=== PATIENT | male | born 1985 | race Caucasian/White ===

== ENCOUNTER 2019-04-29 13:29 | Emergency (ER) | payer OTHER ==
[~2019-04-29] VITALS: Ht 177.8 cm; Wt 70.3 kg
[~2019-04-29 13:29] MED LIST: AZIT250 PO; CYCL10 PO; GUAI600ER PO; HYDACE5 PO; HYDACE5325 PO; METPRE4DP PO; NAPR500 PO; NAPR550 PO; OXYACE5T PO; PROM25 PO; RANI150 PO; RXNAPNA550 PO; SULF10OPSA OS; Ultram50 MG PO
[2019-04-29] MEDS ORDERED: Prednisone20 MG PO (15:33)
[2019-04-29] MEDS ORDERED: Pepcid20 MG PO (15:33)
== END 2019-04-29 15:36 | disposition home or self-care (01) ==
LOC: ER 13:29
DX: T63.441A Toxic effect of venom of bees, accidental (unintentional), initial encounter (principal); F17.210 Nicotine dependence, cigarettes, uncomplicated
CPT/HCPCS: 96374; 96375; 99283-25; J1100; J1200; J2765

== ENCOUNTER 2019-05-22 21:48 | Emergency (ER) | payer OTHER ==
[~2019-05-22] VITALS: Ht 177.8 cm; Wt 70.3 kg
[~2019-05-22 21:48] MED LIST changes: +Pepcid20 MG PO; +Prednisone20 MG PO
[2019-05-22 23:21] LABS: BASOPHILS ABSOLUTE AUTO 0.04 K/mm3 (0.00-0.23); BASOPHILS PERCENT AUTO 0 % (0-2); EOSINOPHILS PERCENT AUTO 1 % (0-6); Hematocrit 48.2 % (37.0-53.0); Hemoglobin 16.5 g/dL (13.5-17.5); IMMATURE GRAN ABSOLUTE AUTO 0.02 K/mm3 (0.00-0.10); IMMATURE GRAN PERCENT AUTO 0 % (0-1); LYMPHOCYTES PERCENT AUTO 20 % (21-46); MONOCYTES PERCENT AUTO 9 % (4-13); Mean Corpuscular HGB 29.9 pg (26.0-34.0); Mean Corpuscular HGB Conc 34.2 g/dL (31.5-36.5); Mean Corpuscular Volume 87 fL (80-100); Mean Platelet Volume 8.3 fL (9.1-12.4); NEUTROPHILS ABSOLUTE AUTO 7.23 K/mm3 (1.96-9.15); NEUTROPHILS PERCENT AUTO 70 % (41-73); Platelet Count 328 K/mm3 (150-400); RDW Coefficient Variation 11.9 % (11.7-14.2); RDW Standard Deviation 38.6 fL (35.1-46.3); Red Blood Cell Count 5.52 M/mm3 (4.30-5.90); White Blood Cell Count 10.39 K/mm3 (4.00-11.30)
[2019-05-22 23:39] LABS: Alanine Aminotransfer (ALT/SGP 26 U/L (12-78); Albumin, Blood 4.4 g/dL (3.4-5.0); Albumin/Globulin Ratio 1.2 (0.8-1.8); Alk Phos 86 U/L (50-136); Anion Gap 5 mmol/L (6-16); Aspartate Aminotrans (AST/SGOT 17 U/L (12-37); Bilirubin, Total 0.8 mg/dL (0.1-1.0); Blood Urea Nitrogen 19 mg/dL (8-24); CO2, Blood 29 mmol/L (21-32); Calcium, Blood 8.9 mg/dL (8.5-10.1); Chloride, Blood 107 mmol/L (98-108); Ethanol (Alcohol), Blood, Med <3 mg/dL; Globulin, Blood 3.7 g/dL (2.2-4.0); Glomerular Filtration Rate >60 (60-); Glucose, Blood 93 mg/dL (70-99); Potassium, Blood 3.6 mmol/L (3.5-5.5); Salicylate 2.8 mg/dL (2.8-20.0); Sodium, Blood 141 mmol/L (136-145); Total Protein, Blood 8.1 g/dL (6.4-8.2)
[2019-05-22 23:47] LABS: Acetaminophen, Random <2.0 ug/mL (10.0-30.0)
== END 2019-05-23 02:45 | disposition home or self-care (01) ==
LOC: ER 21:48
PROVIDERS: Emergency Medicine
DX: F32.9 Major depressive disorder, single episode, unspecified (principal); F17.210 Nicotine dependence, cigarettes, uncomplicated
CPT/HCPCS: 36415; 80053; 85025; 99284; G0480; Q3014

== ENCOUNTER 2020-12-02 17:10 | Emergency (ER) | payer OTHER ==
[~2020-12-02] VITALS: Ht 180.3 cm; Wt 70.3 kg
[2020-12-02 17:47] LABS: BASOPHILS ABSOLUTE AUTO 0.06 K/mm3 (0.00-0.23); BASOPHILS PERCENT AUTO 0 % (0-2); EOSINOPHILS ABSOLUTE AUTO 0.45 K/mm3 (0.00-0.68); EOSINOPHILS PERCENT AUTO 3 % (0-6); Hematocrit 44.8 % (37.0-53.0); Hemoglobin 14.6 g/dL (13.5-17.5); IMMATURE GRAN ABSOLUTE AUTO 0.05 K/mm3 (0.00-0.10); IMMATURE GRAN PERCENT AUTO 0 % (0-1); LYMPHOCYTES ABSOLUTE AUTO 1.67 K/mm3 (0.84-5.20); LYMPHOCYTES PERCENT AUTO 10 % (21-46); MONOCYTES ABSOLUTE AUTO 2.03 K/mm3 (0.16-1.47); MONOCYTES PERCENT AUTO 12 % (4-13); Mean Corpuscular HGB 28.5 pg (26.0-34.0); Mean Corpuscular HGB Conc 32.6 g/dL (31.5-36.5); Mean Corpuscular Volume 88 fL (80-100); Mean Platelet Volume 8.5 fL (9.1-12.4); NEUTROPHILS ABSOLUTE AUTO 12.57 K/mm3 (1.96-9.15); NEUTROPHILS PERCENT AUTO 75 % (41-73); Platelet Count 289 K/mm3 (150-400); RDW Coefficient Variation 11.4 % (11.7-14.2); RDW Standard Deviation 37.1 fL (35.1-46.3); Red Blood Cell Count 5.12 M/mm3 (4.30-5.90); White Blood Cell Count 16.83 K/mm3 (4.00-11.30)
[2020-12-02 18:08] LABS: Alanine Aminotransfer (ALT/SGP 35 U/L (12-78); Albumin, Blood 3.1 g/dL (3.4-5.0); Albumin/Globulin Ratio 0.7 (0.8-1.8); Alk Phos 91 U/L (50-136); Anion Gap 5 mmol/L (6-16); Aspartate Aminotrans (AST/SGOT 17 U/L (12-37); Bilirubin, Total 0.2 mg/dL (0.1-1.0); Blood Urea Nitrogen 16 mg/dL (8-24); Bun/Creatinine Ratio 21.7 (12.0-20.0); CO2, Blood 24 mmol/L (21-32); Calcium, Blood 8.7 mg/dL (8.5-10.1); Chloride, Blood 109 mmol/L (98-108); Creatinine, Blood 0.74 mg/dL (0.60-1.20); Globulin, Blood 4.2 g/dL (2.2-4.0); Glomerular Filtration Rate >60 (60-); Glucose, Blood 108 mg/dL (70-99); Sodium, Blood 138 mmol/L (136-145); Total Protein, Blood 7.3 g/dL (6.4-8.2)
[2020-12-02] MEDS ORDERED: Bactrim Ds Tab1 EACH PO (20:28)
[2020-12-02] MEDS ORDERED: CEPH500 PO (20:28)
== END 2020-12-02 21:32 | disposition home or self-care (01) ==
LOC: ER 17:10
PROVIDERS: Physician Assistant
DX: L03.116 Cellulitis of left lower limb (principal); L02.416 Cutaneous abscess of left lower limb; F17.210 Nicotine dependence, cigarettes, uncomplicated
CPT/HCPCS: 10060; 36415; 73590; 80053; 83605; 85025; 87040; 96361-59; 96374-59; 96375-59; 99283-25; A9270; J1885; J3010; J7030; J7120

== ENCOUNTER 2021-06-27 07:38 | Inpatient (IN) | payer OTHER ==
[~2021-06-27] VITALS: Ht 177.8 cm; Wt 77.5 kg
[~2021-06-27 07:38] MED LIST changes: +Bactrim Ds Tab1 EACH PO; +CEPH500 PO
[2021-06-27 07:56] LABS: BASOPHILS ABSOLUTE AUTO 0.07 K/mm3 (0.00-0.23); BASOPHILS PERCENT AUTO 0 % (0-2); EOSINOPHILS ABSOLUTE AUTO 0.09 K/mm3 (0.00-0.68); EOSINOPHILS PERCENT AUTO 0 % (0-6); Hematocrit 45.9 % (37.0-53.0); Hemoglobin 15.8 g/dL (13.5-17.5); IMMATURE GRAN ABSOLUTE AUTO 0.19 K/mm3 (0.00-0.10); IMMATURE GRAN PERCENT AUTO 1 % (0-1); LYMPHOCYTES ABSOLUTE AUTO 1.56 K/mm3 (0.84-5.20); LYMPHOCYTES PERCENT AUTO 6 % (21-46); MONOCYTES ABSOLUTE AUTO 2.03 K/mm3 (0.16-1.47); MONOCYTES PERCENT AUTO 8 % (4-13); Mean Corpuscular HGB 29.5 pg (26.0-34.0); Mean Corpuscular HGB Conc 34.4 g/dL (31.5-36.5); Mean Corpuscular Volume 86 fL (80-100); Mean Platelet Volume 8.9 fL (9.1-12.4); NEUTROPHILS ABSOLUTE AUTO 22.18 K/mm3 (1.96-9.15); NEUTROPHILS PERCENT AUTO 85 % (41-73); Platelet Count 311 K/mm3 (150-400); RDW Coefficient Variation 11.9 % (11.7-14.2); RDW Standard Deviation 37.3 fL (35.1-46.3); Red Blood Cell Count 5.36 M/mm3 (4.30-5.90); White Blood Cell Count 26.12 K/mm3 (4.00-11.30)
[2021-06-27 08:16] LABS: Alanine Aminotransfer (ALT/SGP 65 U/L (12-78); Albumin, Blood 3.7 g/dL (3.4-5.0); Alk Phos 79 U/L (50-136); Anion Gap 4 mmol/L (6-16); Aspartate Aminotrans (AST/SGOT 74 U/L (12-37); Bilirubin, Total 0.4 mg/dL (0.1-1.0); Blood Urea Nitrogen 24 mg/dL (8-24); CO2, Blood 29 mmol/L (21-32); Chloride, Blood 105 mmol/L (98-108); Creatinine, Blood 0.92 mg/dL (0.60-1.20); Ethanol (Alcohol), Blood, Med <3 mg/dL; Globulin, Blood 3.6 g/dL (2.2-4.0); Glomerular Filtration Rate >60 (60-); Glucose, Blood 98 mg/dL (70-99); Potassium, Blood 3.9 mmol/L (3.5-5.5); Sodium, Blood 138 mmol/L (136-145); Total Protein, Blood 7.3 g/dL (6.4-8.2)
[2021-06-27 09:05] LABS: International Normalized Ratio 1.02
[2021-06-27 10:51] LABS: SARS-Cov-2 (COVID-19) PCR, MMC NEGATIVE (NEGATIVE)
--- NOTE | 2021-06-27 11:25 | NUR ---
PT ARRIVED TO UNIT FROM ER AT APROX 1110, TRANSFERED TO BED FROM [facility] USING SLIDER SHEET. SPLINT IN PLACE TO RLE, OPEN WOUND TO R THIGH OOZING BLOOD. LOWER LIP BLOODY, APPEARS TO HAVE SOME TEETH BROKEN/MISSING. A/O X'S 3. PT AWAKES WITH VERBAL STIMULI BUT FALLS BACK ASLEEP QUICKLY. NEURO CHECK WNL.PT NPO AT THIS TIME.
--- NOTE | 2021-06-27 13:04 | NUR ---
BOX ATTACHER IN ROOM TO SEE PT.
--- NOTE | 2021-06-27 16:29 | NUR ---
INTO [facility] QADMISSION TO UNIT STARTED. PATIENT LETHARGIC HAD JUST RECIEVED PAIN RX ON FLOOR TO MANAGE PAIN. ABLE TO WAKE TO ANSWER QUESTIONS. BROUGHT TO [facility] ON BED.
--- NOTE | 2021-06-27 16:30 | NUR ---
PT TO OR AT APROX 3665
[2021-06-28 05:30] LABS: Alanine Aminotransfer (ALT/SGP 50 U/L (12-78); Albumin, Blood 2.9 g/dL (3.4-5.0); Albumin/Globulin Ratio 0.9 (0.8-1.8); Alk Phos 64 U/L (50-136); Anion Gap 5 mmol/L (6-16); Aspartate Aminotrans (AST/SGOT 50 U/L (12-37); Bilirubin, Total 0.5 mg/dL (0.1-1.0); Blood Urea Nitrogen 25 mg/dL (8-24); Bun/Creatinine Ratio 31.1 (12.0-20.0); CO2, Blood 27 mmol/L (21-32); Calcium, Blood 7.9 mg/dL (8.5-10.1); Chloride, Blood 104 mmol/L (98-108); Creatinine, Blood 0.81 mg/dL (0.60-1.20); Globulin, Blood 3.2 g/dL (2.2-4.0); Glomerular Filtration Rate >60 (60-); Glucose, Blood 122 mg/dL (70-99); Potassium, Blood 4.2 mmol/L (3.5-5.5); Sodium, Blood 136 mmol/L (136-145); Total Protein, Blood 6.1 g/dL (6.4-8.2)
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
[2021-06-28 18:15] LABS: U Amphetamine Screen DETECTED; U Barbituate Screen Not Detected; U Benzodiazapine Screen Not Detected; U Buprenorphine Screen Not Detected; U Cannabinoids Screen Not Detected; U Cocaine Screen Not Detected; U Methadone Screen Not Detected; U Methamphetamine Screen DETECTED; U Opiates Screen DETECTED; U Oxycodone Screen Not Detected; U Phencyclidine Screen Not Detected; U Propoxyphene Screen Not Detected
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
[2021-06-28] MEDS ORDERED: ELIQUIS5 M2 PO (22:16)
[2021-06-28] MEDS ORDERED: FINA5 PO (22:17)
[2021-06-28] MEDS ORDERED: LOVA40 PO (22:17)
[2021-06-28] MEDS ORDERED: METO50ER PO (22:18)
--- NOTE | 2021-06-29 04:39 | NUR ---
SHIFT SUMMARY NO ACUTE CHANGES THIS SHIFT. PT RECEIVING 2 NORCO + 1MG IV DILAUDID FOR BREAKTHROUGH PAIN. PT REPORTS MOUTH/CHIN AREA IS THE MOST PAINFUL. USING URINAL TO VOID. DRESSINGS TO R LEG REMAIN CDI. USES CALL LIGHT APPROPRIATELY.
--- NOTE | 2021-06-29 16:29 | NUR ---
SUMMARY: PT IS POD2 GAMMA NAILING OF R HIP. PT IS A/O, VSS. PT REPORTING PAIN AT MOUTH/JAW MORE THAN AT HIP. NARCO SWITCHED TO PERCOCET TO MANAGE PAIN, APPEARS TO BE DOING WELL. PT RESTING AT THIS TIME. PT WORKED WITH THERAPY [employer]FRANNIE. NO ACUTE SAFETY CONCERNS. WILL CTM AND REPORT TO NOC ALVARO.
--- NOTE | 2021-06-30 04:55 | NUR ---
POD 3 S/P R HIP NAILING. PT VSS T/O NIGHT. DRESSING CDI. PAIN MGD W/2 PERCOCET ADN TORADOL W/REP RELIEF. PT SWALLOWING LIQUIDS AND FL PO, DENIES DIFFICULTY SWALLOWING, DOES REP GENERALIZED MOUTH/JAW PAIN. PLAN TO CONT TO MOBILIZE PT CHAN.
--- NOTE | 2021-06-30 12:38 | NUR ---
SPOKE WITH PT'S MOTHER, MARU AND UPDATE OF PT STATUS GIVEN.
[2021-06-30] MEDS ORDERED: Aspirin325 MG PO (14:26)
[2021-06-30] MEDS ORDERED: Percocet 5-3251 EACH PO (14:27)
--- NOTE | 2021-06-30 16:20 | NUR ---
MESSAGE LEFT WITH MUSIC WRITER TO SCHEDULE OUTPUT PHYSCIAL THERAPY TOMORROW FOR PT PER ORDER.
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
== END 2021-06-30 16:15 | disposition home or self-care (01) | DRG 956 ==
LOC: ER 07:38 → SURS 09:39
PROVIDERS: Emergency Medicine; Orthopaedic Surgery; ADMIT Surgery
PROC: 0HC1XZZ Extirpation of Matter from Face Skin, External Approach (ICD-10-PCS; 2021-06-27)
PROC: 0QS636Z Reposition Right Upper Femur with Intramedullary Internal Fixation Device, Percutaneous Approach (ICD-10-PCS; principal; 2021-06-27 14:15)
DX: S72.141A Displaced intertrochanteric fracture of right femur, initial encounter for closed fracture (principal); S27.321A Contusion of lung, unilateral, initial encounter; S22.42XA Multiple fractures of ribs, left side, initial encounter for closed fracture; Z79.899 Other long term (current) drug therapy; V47.5XXA Car driver injured in collision with fixed or stationary object in traffic accident, initial encounter; Y93.89 Activity, other specified; Y92.410 Unspecified street and highway as the place of occurrence of the external cause; S72.321A Displaced transverse fracture of shaft of right femur, initial encounter for closed fracture; F17.200 Nicotine dependence, unspecified, uncomplicated; S01.541A Puncture wound with foreign body of lip, initial encounter; Z20.822 Contact with and (suspected) exposure to COVID-19
CPT/HCPCS: 41805; 70450; 70486; 71260; 72125; 73552; 74177; 80048; 80053; 83690; 85025; 85610; 86850; 86900; 86901; 90471; 90714; 96374-59; 97110; 97116; 97161; 97165; 97530; 97535; 99285-25; A9270; C1713; C1769; G0480; J0690; J1100; J1170; J1885; J2250; J2370; J2405; J2704; J3010; J7120; Q9967; U0004

== ENCOUNTER 2022-12-07 13:56 | Emergency (ER) | payer OTHER ==
[~2022-12-07] VITALS: Ht 180.3 cm; Wt 72.6 kg
[~2022-12-07 13:56] MED LIST changes: +Aspirin325 MG PO; +ELIQUIS5 M2 PO; +FINA5 PO; +LOVA40 PO; +METO50ER PO; +Percocet 5-3251 EACH PO
== END 2022-12-07 16:09 | disposition home or self-care (01) ==
LOC: ER 13:56
DX: S61.412A Laceration without foreign body of left hand, initial encounter (principal); F17.210 Nicotine dependence, cigarettes, uncomplicated; W29.8XXA Contact with other powered hand tools and household machinery, initial encounter
CPT/HCPCS: 12001; 99282-25